=== PATIENT | female | born 1985 | race Asian ===

== ENCOUNTER 2020-09-19 16:04 | Emergency (ER) | payer OTHER ==
[~2020-09-19] VITALS: Ht 147.3 cm; Wt 45.0 kg
[2020-09-19 16:05] VITALS: BP 115/70
--- NOTE | 2020-09-19 16:09 | NUR ---
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
[2020-09-19 16:32] LABS: MEAN PLATELET VOLUME 6.3 fL (7.4-10.4)
[2020-09-19 16:39] LABS: BASOPHILS % (AUTO) 1 % (0-1); EOSINOPHILS % (AUTO) 0 % (1-7); LYMPHOCYTES % (AUTO) 27 % (22-44); MEAN CORPUSCULAR HGB CONC 30.5 g/dL (32.4-35.8); MONOCYTES % (AUTO) 5 % (2-9); NEUTROPHILS % (AUTO) 67 % (42-75); PLATELET COUNT 507 x10^3/uL (130-400); RED BLOOD COUNT 4.58 x10^6/uL (3.82-5.3); RED CELL DISTRIBUTION WIDTH 18.1 % (9.6-15.2)
[2020-09-19 16:46] LABS: ALANINE AMINOTRANSFERASE 13 U/L (12-78); ANION GAP 6 mmol/L (5-15); CALCIUM 8.9 mg/dL (8.5-10.1); CHLORIDE 106 mmol/L (98-107); CREATININE 0.66 mg/dL (0.55-1.02)
[2020-09-19 17:03] LABS: ALKALINE PHOSPHATASE 74 U/L (45-117); BILIRUBIN,TOTAL 0.5 mg/dL (0.2-1.0); TOTAL PROTEIN 8.9 g/dL (6.4-8.2)
[2020-09-19 17:13] LABS: ANISOCYTOSIS 1+; MD MORPH REVIEW ONLY; MICROCYTOSIS 1+
[2020-09-19 17:16] LABS: HYPOCHROMIA 1+; OVALOCYTES 1+
[2020-09-19 17:17] LABS: <PLATELET ESTIMATE> INCREASED; <PLT MORPHOLOGY> NORMAL PLT MORPH
--- NOTE | 2020-09-19 19:07 | NUR ---
PT PLACED IN ROOM. COMPLAINING OF EPIGASTRIC PAIN TO CHEST. CALM AND COOPERATIVE. ON CR MONITOR. PT ASKING TO EAT, AND ADVISED TO REMAIN NPO UNTIL THE DOCTOR COMES IN. BLOOD HAS BEEN DRAWN AND XRAY HAS BEEN TAKEN. WAITING ON READ.
--- NOTE | 2020-09-19 19:23 | NUR ---
PA TO BEDSIDE TO EVAL PT. PT REFUSED MEDICATIONS ORDERED FOR HER, AND INSTEAD WANTS TO EAT. PA PREPARING D/C PAPERS TO D/C PT AND SO SHE CAN GO EAT.
== END 2020-09-19 19:44 | disposition home or self-care (01) ==
LOC: ED 16:34
DX: K21.9 Gastro-esophageal reflux disease without esophagitis (principal); R10.13 Epigastric pain; Z32.01 Encounter for pregnancy test, result positive; R11.2 Nausea with vomiting, unspecified
CPT/HCPCS: 36415; 71045; 76700; 80053; 83690; 84703; 85025; 93005; 99285

== ENCOUNTER 2020-11-30 23:54 | Outpatient (CLI) | payer OTHER ==
[~2020-11-30] VITALS: Ht 147.3 cm; Wt 43.2 kg
[2020-12-01 00:50] LABS: BASOPHILS % (AUTO) 0 % (0-1); EOSINOPHILS % (AUTO) 0 % (1-7); LYMPHOCYTES % (AUTO) 20 % (22-44); MEAN CORPUSCULAR HEMOGLOBIN 21.7 pg (27.0-34.8); MEAN CORPUSCULAR HGB CONC 31.4 g/dL (32.4-35.8); MEAN PLATELET VOLUME 6.2 fL (7.4-10.4); MONOCYTES % (AUTO) 5 % (2-9); NEUTROPHILS % (AUTO) 75 % (42-75); PLATELET COUNT 439 x10^3/uL (130-400); RED BLOOD COUNT 3.57 x10^6/uL (3.82-5.3); RED CELL DISTRIBUTION WIDTH 18.1 % (9.6-15.2)
[2020-12-01 01:01] LABS: AMPHETAMINE SCREEN, URINE Negative (Negative); BARBITURATE SCREEN, URINE Negative (Negative); BENZODIAZEPINE SCREEN, URINE Negative (Negative); CANNABINOID SCREEN, URINE Negative (Negative); COCAINE SCREEN, URINE Negative (Negative); METHADONE SCREEN, URINE Negative (Negative); OPIATE SCREEN, URINE Negative (Negative)
[2020-12-01 01:41] LABS: INTERNATIONAL NORMALIZED RATIO 0.93 (0.93-1.1); PROTHROMBIN TIME 9.9 Seconds (9.6-11.5)
== END 2020-12-01 03:05 | disposition home or self-care (01) ==
LOC: LDOP 23:54
PROVIDERS: ATTEND Student in an Organized Health Care Education/Training Program
DX: O44.02 Complete placenta previa NOS or without hemorrhage, second trimester (principal); O26.892 Other specified pregnancy related conditions, second trimester; R10.9 Unspecified abdominal pain; Z3A.17 17 weeks gestation of pregnancy
CPT/HCPCS: 36415; 76805; 80307; 85025; 85384; 85460; 85610; 85730; 86592; 86762; 86850; 86900; 87340; 87806; 99211; G0463; G0475

== ENCOUNTER 2021-02-09 14:53 | Emergency (ER) | payer OTHER ==
[~2021-02-09] VITALS: Ht 147.3 cm; Wt 46.5 kg
[2021-02-09] MEDS ORDERED: SODIUM CHLORIDE FLUSH 10ML SYR IVF ONE (15:30)
--- NOTE | 2021-02-09 17:23 | NUR ---
NIL X 1 @[id number]
[2021-02-09 18:05] LABS: ALANINE AMINOTRANSFERASE 9 U/L (12-78); ALBUMIN 2.8 g/dL (3.4-5.0); ANION GAP 5 mmol/L (5-15); CALCIUM 8.1 mg/dL (8.5-10.1); CHLORIDE 107 mmol/L (98-107); CREATININE 0.38 mg/dL (0.55-1.02)
[2021-02-09 18:07] LABS: ALKALINE PHOSPHATASE 83 U/L (45-117); BILIRUBIN,TOTAL 0.3 mg/dL (0.2-1.0); TOTAL PROTEIN 7.9 g/dL (6.4-8.2)
--- NOTE | 2021-02-09 18:15 | NUR ---
LAB CALLED TO EXPEDITE CBC RESULTS
[2021-02-09 18:27] LABS: BASOPHILS % (AUTO) 1 % (0-1); EOSINOPHILS % (AUTO) 0 % (1-7); LYMPHOCYTES % (AUTO) 17 % (22-44); MEAN CORPUSCULAR HEMOGLOBIN 18.7 pg (27.0-34.8); MEAN PLATELET VOLUME 6.2 fL (7.4-10.4); MONOCYTES % (AUTO) 6 % (2-9); NEUTROPHILS % (AUTO) 76 % (42-75); PLATELET COUNT 447 x10^3/uL (130-400); RED BLOOD COUNT 3.42 x10^6/uL (3.82-5.3); RED CELL DISTRIBUTION WIDTH 17.6 % (9.6-15.2)
[2021-02-09 18:41] LABS: MEAN CORPUSCULAR HGB CONC 29.7 g/dL (32.4-35.8)
--- NOTE | 2021-02-09 18:43 | NUR ---
ERP MADE AWARE OF HEMOGLOBIN OF 6.4/HEMATOCIT OF 21.6. ERP TO ORDER 1UNIT PRBC/IRON. ERP MADE AWARE OF PATIENT REPORTED ALLERGY TO IRON
--- NOTE | 2021-02-09 18:58 | NUR ---
RECIEVED BEDSIDE REPORT FROM TORI KEITH
--- NOTE | 2021-02-09 19:04 | NUR ---
REPORT TO LALO KEITH
--- NOTE | 2021-02-09 19:04 | NUR ---
PT GIVEN RED MEAT SANDWICH PER MD ORDER PASTRAMI GIVEN TO PT
[2021-02-09 19:19] LABS: <PLATELET ESTIMATE> INCREASED; ANISOCYTOSIS 1+; HYPOCHROMIA 2+; MICROCYTOSIS 2+; OVALOCYTES 1+; POLYCHROMASIA 1+; SMALL PLATELETS 1+
--- NOTE | 2021-02-09 19:31 | NUR ---
SPOKE TO BLOOD BANK AND BLOOD IS READY. PURPLE SLIP SENT TO BLOOD BANK PT ATE ENTIRE SANDWICH
[2021-02-09 20:01] VITALS: BP 83/56
[2021-02-09 20:19] VITALS: BP 92/53
[2021-02-09 20:20] VITALS: BP 92/53
--- NOTE | 2021-02-09 20:21 | NUR ---
PT RESTING IN BED. NADN. NO SIGNS OF BLOOD TRANSFUSION REACTION. WCTM. INCREASED RATE OF BLOOD INFUSION
[2021-02-09 20:37] VITALS: BP 94/58
[2021-02-09 20:57] VITALS: BP 107/63
--- NOTE | 2021-02-09 21:01 | NUR ---
NO BLOOD TRANFUSION REACTIONS NOTED. PT RESTING IN BED EATING FOOD BROUGHT TO HER. NADN. TEJEDA. WCTM
[2021-02-09 21:02] VITALS: BP 103/61
--- NOTE | 2021-02-09 21:17 | NUR ---
Patient/Caregiver given discharge instructions and they have confirmed that they understand the instructions. Patient ambulatory with steady gait. NAD, all questions answered appropriately, denies additional needs at this time. No personal belongings left in room after discharge.
== END 2021-02-09 21:18 | disposition home or self-care (01) ==
LOC: ED 18:15
DX: D50.9 Iron deficiency anemia, unspecified (principal); R07.89 Other chest pain
CPT/HCPCS: 36415; 36430; 71045; 80053; 82607; 82728; 83540; 83550; 85025; 86850; 86900; 86923; 93005; 99285; P9016